=== PATIENT | male | born 1980 | race Caucasian/White ===

== ENCOUNTER 2016-12-09 12:47 | Outpatient (CLI) | payer OTHER ==
--- NOTE | 2016-12-09 14:30 | DIAGNOSTIC IMAGING REPORT ---
PROCEDURE: XR BARIUM SWALLOW INDICATION: Dysphagia. Possible reflux disorder. TECHNIQUE: Double contrast study. Fluoroscopy time, 1.9 minutes; 1102.77 mGy. 53 fluoroscopic images (including cine fluoroscopy of the esophagus). COMPARISON: None. FINDINGS: Pharyngoesophagus is normal. No constricting or polypoid lesions are identified. Small sliding hiatal hernia. Moderate gastroesophageal reflux. Esophagus is otherwise normal. IMPRESSION: 1. Normal pharyngoesophagus. 2. Small sliding hiatal hernia. 3. Moderate gastroesophageal reflux. 4. Findings discussed with the patient.
== END 2016-12-09 23:00 ==
LOC: XR SRH 12:47
DX: K21.9 Gastro-esophageal reflux disease without esophagitis (principal)